=== PATIENT | female | born 1975 | race Caucasian/White ===

== ENCOUNTER 2017-11-24 02:32 | Emergency (ER) | payer MEDICAID ==
[~2017-11-24] VITALS: Ht 167.6 cm; Wt 54.0 kg
[~2017-11-24 02:32] MED LIST: CITALOPRAM; LITHIUM
[2017-11-24 02:33] VITALS: BP 160/93
== END 2017-11-24 08:04 | disposition left against medical advice (07) ==
LOC: ER 02:32
DX: R46.89 Other symptoms and signs involving appearance and behavior (principal); Z53.21 Procedure and treatment not carried out due to patient leaving prior to being seen by health care provider

== ENCOUNTER 2017-12-10 17:16 | Emergency (ER) | payer SELFPAY ==
[~2017-12-10] VITALS: Ht 172.7 cm; Wt 55.0 kg
[2017-12-10 17:19] VITALS: BP 130/64
== END 2017-12-10 21:02 | disposition left against medical advice (07) ==
LOC: ER 17:32
DX: Z00.8 Encounter for other general examination (principal); Z53.21 Procedure and treatment not carried out due to patient leaving prior to being seen by health care provider

== ENCOUNTER 2019-01-11 10:02 | Emergency (ER) | payer MEDICAID, OTHER ==
[~2019-01-11] VITALS: Ht 172.7 cm; Wt 65.0 kg
[2019-01-11 10:05] VITALS: BP 144/98
== END 2019-01-11 11:12 | disposition left against medical advice (07) ==
LOC: ER 10:02
DX: Z53.21 Procedure and treatment not carried out due to patient leaving prior to being seen by health care provider (principal)

== ENCOUNTER 2019-01-12 11:12 | Emergency (ER) | payer MEDICAID ==
[~2019-01-12] VITALS: Ht 167.6 cm; Wt 80.0 kg
[2019-01-12] MEDS ORDERED: KETOROLAC 60MG/2ML VIAL IM ONE (14:00)
[2019-01-12 14:41] VITALS: BP 115/71
== END 2019-01-12 14:44 | disposition home or self-care (01) ==
LOC: ER 11:12
DX: K04.7 Periapical abscess without sinus (principal); R68.84 Jaw pain; F31.9 Bipolar disorder, unspecified; G47.00 Insomnia, unspecified; F41.9 Anxiety disorder, unspecified; Z88.0 Allergy status to penicillin; Z88.8 Allergy status to other drugs, medicaments and biological substances
CPT/HCPCS: 81025; 96372; 99283; J1885

== ENCOUNTER 2019-02-22 18:11 | Emergency (ER) | payer MEDICAID ==
[~2019-02-22] VITALS: Ht 167.6 cm; Wt 80.0 kg
[2019-02-22] MEDS ORDERED: SODIUM CHLORIDE 0.9% 1,000 ML IV ONE (22:42)
[2019-02-22] MEDS ORDERED: LORAZEPAM 2MG/ML CPJ IV STA (22:42)
[2019-02-22 23:01] LABS: BASOPHILS % 1.5 % (0.0-2.0); HEMATOCRIT. 42.3 % (36.0-48.0); LYMPHOCYTES % 37.5 % (20.0-50.0); MEAN CORPUSCULAR HEMOGLOBIN 29.5 pg (28.0-32.0); MEAN CORPUSCULAR VOLUME 89.6 fL (81.0-99.0); MEAN PLATELET VOLUME 7.9 fl (7.4-10.4); MONOCYTES % 8.8 % (2.0-8.0); NEUTROPHILS % 51.2 % (40.0-76.0); PLATELET 323 x1000/uL (130-400); RED BLOOD CELL COUNT 4.73 mill/uL (4.2-5.4); RED CELL DISTRIBUTION WIDTH 15.5 % (11.6-14.6)
[2019-02-22 23:06] LABS: CHLORIDE 105 mEq/L (98-107)
[2019-02-22 23:07] LABS: HCG SCREEN NEGATIVE
[2019-02-22 23:10] LABS: ETHANOL BLOOD 55 mg/dL
[2019-02-22 23:50] LABS: CLARITY URINE CLEAR (CLEAR); COLOR URINE YELLOW (YELLOW); KETONES URINE TRACE (NEGATIVE); LEUKOCYTE ESTERASE URINE 1+ (NEGATIVE); NITRITE URINE NEGATIVE (NEGATIVE); OCCULT BLOOD URINE NEGATIVE (NEGATIVE); PH URINE 7.5 (4.5-8.0); PROTEIN URINE NEGATIVE (NEGATIVE); UROBILINOGEN URINE 0.2 E.U./dL (0.2-1.0)
[2019-02-23 00:13] LABS: *AMPHETAMINES SCREEN URINE NEGATIVE (NEGATIVE); *BARBITURATES SCREEN URINE NEGATIVE (NEGATIVE); *BENZODIAZEPINES SCREEN URINE NEGATIVE (NEGATIVE); *COCAINE SCREEN URINE NEGATIVE (NEGATIVE)
[2019-02-23 00:14] LABS: CANNABINOID URINE SCREEN NEGATIVE (NEGATIVE); METHADONE URINE SCREEN NEGATIVE (NEGATIVE); OPIATES URINE SCREEN NEGATIVE (NEGATIVE); PHENCYCLIDINE URINE SCREEN NEGATIVE (NEGATIVE)
[2019-02-23] MEDS ORDERED: LORAZEPAM 1MG TABLET PO ONE (05:30)
[2019-02-23] MEDS ORDERED: LORAZEPAM 0.5MG TABLET PO ONE (06:45)
[2019-02-23 11:19] VITALS: BP 126/72
== END 2019-02-23 11:33 | disposition home or self-care (01) ==
LOC: ER 18:11
DX: F32.9 Major depressive disorder, single episode, unspecified (principal); R45.851 Suicidal ideations; F41.9 Anxiety disorder, unspecified; F10.10 Alcohol abuse, uncomplicated; Z88.0 Allergy status to penicillin; Z88.5 Allergy status to narcotic agent; Y90.2 Blood alcohol level of 40-59 mg/100 ml
CPT/HCPCS: 36415; 80053; 80305; 80320; 81003; 84703; 85025; 93005; 96374; 99284; J2060; J7030; Z7610; G0480

== ENCOUNTER 2019-09-11 09:08 | Inpatient (IN) | payer MEDICAID ==
[~2019-09-11] VITALS: Ht 172.7 cm; Wt 86.2 kg
[2019-09-11] MEDS ORDERED: ACETAMINOPHEN 325MG TABLET PO ONE (09:45)
[2019-09-11] MEDS ORDERED: MECLIZINE 25MG TABLET PO ONE (11:30)
[2019-09-11] MEDS ORDERED: SODIUM CHLORIDE 0.9% 1,000 ML IV ONE (11:37)
[2019-09-11] MEDS ORDERED: ONDANSETRON HCL 4MG/2ML INJ IV STA (11:37)
[2019-09-11 11:50] LABS: BASOPHILS % 0.2 % (0.0-2.0); HEMATOCRIT. 42.6 % (36.0-48.0); HEMOGLOBIN. 14.6 g/dL (12.0-16.0); LYMPHOCYTES % 9.5 % (20.0-50.0); MEAN CORPUSCULAR HEMOGLOBIN 32.1 pg (28.0-32.0); MEAN CORPUSCULAR VOLUME 93.5 fL (81.0-99.0); MEAN PLATELET VOLUME 8.1 fl (7.4-10.4); MONOCYTES % 5.8 % (2.0-8.0); NEUTROPHILS % 84.5 % (40.0-76.0); PLATELET 365 x1000/uL (130-400); RED BLOOD CELL COUNT 4.55 mill/uL (4.2-5.4); RED CELL DISTRIBUTION WIDTH 14.7 % (11.6-14.6)
[2019-09-11 11:51] LABS: CHLORIDE 104 mEq/L (98-107)
[2019-09-11 14:30] VITALS: BP 130/85
[2019-09-11] MEDS ORDERED: PROP20TA7 PO (15:24)
[2019-09-11] MEDS ORDERED: LAMO50TA3 MT (15:24)
[2019-09-11] MEDS ORDERED: CARB300C6 MT (15:24)
[2019-09-11 15:42] VITALS: BP 130/85
[2019-09-11] MEDS: ONDANSETRON HCL 4MG/2ML INJ IV PRN ×2 (19:14→23:31)
[2019-09-11 20:00] VITALS: BP 145/94
[2019-09-11] MEDS ORDERED: SODIUM CHLORIDE 0.9% 500 ML IV SCH (21:15)
[2019-09-11] MEDS: PROPRANOLOL HCL 10MG TABLET PO SCH (21:18)
[2019-09-11] MEDS: LAMOTRIGINE 25MG TABLET PO SCH (21:19)
[2019-09-11] MEDS: CARBAMAZEPINE 100MG TABLET CHEW PO SCH (21:19)
[2019-09-11] MEDS: SODIUM CHLORIDE 0.9% 1,000 ML IV SCH (21:45)
[2019-09-11] MEDS ORDERED: METOCLOPRAMIDE HCL 10MG TABLET PO PRN (23:30)
[2019-09-12] VITALS: BP 148/94
[2019-09-12 04:00] VITALS: BP 129/84
[2019-09-12] MEDS: ONDANSETRON HCL 4MG/2ML INJ IV PRN (04:33)
[2019-09-12] MEDS: METOCLOPRAMIDE HCL 10MG/2ML VIAL IV SCH ×3 (05:02→17:46)
[2019-09-12] MEDS: PROPRANOLOL HCL 10MG TABLET PO SCH ×3 (06:55→22:45)
[2019-09-12 08:00] VITALS: BP 129/81
[2019-09-12 09:09] LABS: HEPATITIS B SURFACE ANTIGEN NEGATIVE
[2019-09-12 09:38] LABS: HEPATITIS A AB IGM NEGATIVE (NEGATIVE)
[2019-09-12] MEDS: LAMOTRIGINE 25MG TABLET PO SCH ×2 (10:22→18:29)
[2019-09-12] MEDS: HYDROCODONE/ACETAMINOPHEN 5/325MG TABLET PO PRN ×3 (10:23→20:35)
[2019-09-12] MEDS: SODIUM CHLORIDE 0.9% 1,000 ML IV SCH (10:50)
[2019-09-12 12:00] VITALS: BP 117/77
[2019-09-12 16:00] VITALS: BP 115/71
[2019-09-12] MEDS: DOCUSATE SODIUM 100MG CAPSULE PO PRN (18:28)
[2019-09-12 20:00] VITALS: BP 121/77
[2019-09-12] MEDS: CARBAMAZEPINE 100MG TABLET CHEW PO SCH (20:34)
[2019-09-13] VITALS: BP 113/70
[2019-09-13] MEDS: SODIUM CHLORIDE 0.9% 1,000 ML IV SCH (00:28)
[2019-09-13] MEDS: METOCLOPRAMIDE HCL 10MG/2ML VIAL IV SCH ×4 (00:29→12:00)
[2019-09-13] MEDS: HYDROCODONE/ACETAMINOPHEN 5/325MG TABLET PO PRN ×4 (00:45→23:27)
[2019-09-13 04:00] VITALS: BP 129/81
[2019-09-13] MEDS: PROPRANOLOL HCL 10MG TABLET PO SCH ×3 (06:50→21:44)
[2019-09-13 08:00] VITALS: BP 129/78
[2019-09-13] MEDS: LAMOTRIGINE 25MG TABLET PO SCH ×2 (09:45→17:18)
[2019-09-13] MEDS: DOCUSATE SODIUM 100MG CAPSULE PO PRN (11:59)
[2019-09-13 12:08] VITALS: BP 124/82
[2019-09-13 16:25] VITALS: BP 126/88
[2019-09-13 20:00] VITALS: BP 133/76
[2019-09-13] MEDS: CARBAMAZEPINE 100MG TABLET CHEW PO SCH (21:43)
[2019-09-14] VITALS: BP 136/89
[2019-09-14] MEDS: SODIUM CHLORIDE 0.9% 1,000 ML IV SCH ×2 (01:03→04:36)
[2019-09-14 04:00] VITALS: BP 130/75
[2019-09-14] MEDS: METOCLOPRAMIDE HCL 10MG/2ML VIAL IV SCH ×2 (05:03)
[2019-09-14] MEDS: HYDROCODONE/ACETAMINOPHEN 5/325MG TABLET PO PRN (05:04)
[2019-09-14] MEDS: PROPRANOLOL HCL 10MG TABLET PO SCH (05:07)
[2019-09-14 08:00] VITALS: BP 138/79
[2019-09-14] MEDS: LAMOTRIGINE 25MG TABLET PO SCH (09:05)
[2019-09-14 09:50] VITALS: BP 138/79
[2019-09-17 13:06] LABS: AChR BLOCKING ABS SERUM 13 % (0-25)
== END 2019-09-14 10:58 | disposition home or self-care (01) | DRG 57 ==
LOC: ER 09:08 → 6WST 11:53 → ENRESERV 13:56
PROVIDERS: ADMIT Internal Medicine; ATTEND Internal Medicine
DX: S06.0X9A Concussion with loss of consciousness of unspecified duration, initial encounter (principal); E87.1 Hypo-osmolality and hyponatremia; B18.2 Chronic viral hepatitis C; W18.2XXA Fall in (into) shower or empty bathtub, initial encounter; F41.9 Anxiety disorder, unspecified; F31.9 Bipolar disorder, unspecified; Y93.E1 Activity, personal bathing and showering; Z88.0 Allergy status to penicillin; Z88.8 Allergy status to other drugs, medicaments and biological substances; Z79.899 Other long term (current) drug therapy; Y93.89 Activity, other specified; Y92.89 Other specified places as the place of occurrence of the external cause; Y99.8 Other external cause status
CPT/HCPCS: 36415; 70544; 70553; 71045; 76700; 80076; 80320; 83519; 84484; 86705; 86709; 86803; 87340; 93005; 93880; 97162; 97165; 99285; J2405; J2765; J7030; J8597; G0480

== ENCOUNTER 2019-09-20 15:25 | Emergency (ER) | payer MEDICAID ==
[~2019-09-20] VITALS: Ht 172.7 cm; Wt 88.0 kg
[~2019-09-20 15:25] MED LIST changes: +CARB300C6 MT; -CITALOPRAM; +LAMO50TA3 MT; -LITHIUM; +PROP20TA7 PO
[2019-09-20 15:39] VITALS: BP 138/100
[2019-09-20] MEDS: NAPROXEN 375MG TABLET PO ONE (16:40)
== END 2019-09-20 16:40 | disposition home or self-care (01) ==
LOC: ER 15:25
DX: R51 Headache (principal); R03.0 Elevated blood-pressure reading, without diagnosis of hypertension
CPT/HCPCS: 99283

== ENCOUNTER 2023-08-08 11:26 | Emergency (ER) | payer MEDICAID ==
[~2023-08-08] VITALS: Ht 172.7 cm; Wt 73.0 kg
[~2023-08-08 11:26] MED LIST changes: -CARB300C6 MT; +CARB300C9 MT
[2023-08-08] MEDS ORDERED: LORAZEPAM 1MG TABLET PO ONE (11:45)
[2023-08-08] MEDS ORDERED: HALOPERIDOL LACTATE 5MG/ML VIAL IM STA (11:47)
[2023-08-08] MEDS ORDERED: DIPHENHYDRAMINE 50MG/ML VIAL IM STA (11:47)
[2023-08-08] MEDS ORDERED: LORAZEPAM 2MG/ML CPJ IM ONE (12:00)
[2023-08-08 12:14] VITALS: O2SAT 97
[2023-08-08 13:19] LABS: BASOPHILS % 2.3 % (0.0-2.0); EOSINOPHILS % 1.7 % (0.0-5.0); HEMATOCRIT. 42.7 % (36.0-48.0); HEMOGLOBIN. 14.1 g/dL (12.0-16.0); LYMPHOCYTES % 42.4 % (20.0-50.0); MEAN CORPUSCULAR HEMOGLOBIN 31.6 pg (28.0-32.0); MEAN CORPUSCULAR HGB CONC 33.1 g/dL (31.0-37.0); MEAN CORPUSCULAR VOLUME 95.6 fL (81.0-99.0); MEAN PLATELET VOLUME 7.9 fl (7.4-10.4); MONOCYTES % 6.2 % (2.0-8.0); NEUTROPHILS % 47.4 % (40.0-76.0); PLATELET 240 x1000/uL (130-400); RED BLOOD CELL COUNT 4.46 mill/uL (4.2-5.4); RED CELL DISTRIBUTION WIDTH 13.1 % (11.6-14.6); WHITE BLOOD COUNT 3.6 x1000/uL (4.5-11.0)
[2023-08-08 13:40] LABS: HCG SCREEN NEGATIVE
[2023-08-08 13:53] LABS: CHLORIDE 113 mEq/L (98-107); INDEX HEMOLYSI 2 (1-3); INDEX ICTERIC 1 (1-4); INDEX LIPEMIC 1 (1-3); POTASSIUM 3.5 mEq/L (3.5-5.1); SODIUM 145 mEq/L (136-145)
[2023-08-08 14:09] LABS: ACETAMINOPHEN < 2 ug/mL (10-30); ALANINE AMINOTRANSFERASE 344 IU/L (13-61); ALBUMIN 3.7 g/dL (3.4-5.0); ASPARTATE AMINOTRANSFERASE 279 IU/L (15-37); BILIRUBIN TOTAL 0.4 mg/dL (0.1-1.0); CALCIUM 8.1 mg/dL (8.5-10.1); CARBON DIOXIDE 23 mEq/L (21-32); CREATININE 0.9 mg/dL (0.6-1.3); ETHANOL BLOOD 292 mg/dL (<10); GLUCOSE 92 mg/dL (70-105); PROTEIN TOTAL 7.4 g/dL (6.0-8.3); THYROID STIMULATING HORMONE 0.64 uIU/mL (0.36-3.74); UREA NITROGEN BLOOD 13 mg/dL (7-21)
[2023-08-09 10:18] LABS: *AMPHETAMINES SCREEN URINE NEGATIVE (NEGATIVE); *BARBITURATES SCREEN URINE NEGATIVE (NEGATIVE); *BENZODIAZEPINES SCREEN URINE NEGATIVE (NEGATIVE); *COCAINE SCREEN URINE NEGATIVE (NEGATIVE); CANNABINOID URINE SCREEN NEGATIVE (NEGATIVE); ECSTASY MDMA SCREEN URINE NEGATIVE (NEGATIVE); OPIATES URINE SCREEN NEGATIVE (NEGATIVE); PHENCYCLIDINE URINE SCREEN NEGATIVE (NEGATIVE)
[2023-08-09 13:02] VITALS: BP 154/96; PULSE 62; RESP 16; TEMP 98.9
== END 2023-08-09 15:00 | disposition home or self-care (01) ==
LOC: ER 11:26
DX: F41.9 Anxiety disorder, unspecified (principal); I10 Essential (primary) hypertension; Z88.0 Allergy status to penicillin; Z20.822 Contact with and (suspected) exposure to COVID-19
CPT/HCPCS: 80053; 80307; 80329; 80320; 84703; 84443; 85025; 36415; 96372; 99291; 80305; 87426; J1200; J1630; J2060; Z7610 ×4; C9803; G0480

== ENCOUNTER 2024-02-29 20:30 | Emergency (ER) | payer MEDICAID ==
[~2024-02-29] VITALS: Ht 175.3 cm; Wt 82.0 kg
[2024-02-29 20:55] VITALS: O2SAT 95
[2024-02-29 22:28] LABS: CLARITY URINE CLEAR (CLEAR); COLOR URINE YELLOW (YELLOW); GLUCOSE URINE NEGATIVE (NEGATIVE); KETONES URINE NEGATIVE (NEGATIVE); LEUKOCYTE ESTERASE URINE TRACE (NEGATIVE); NITRITE URINE NEGATIVE (NEGATIVE); OCCULT BLOOD URINE NEGATIVE (NEGATIVE); PROTEIN URINE NEGATIVE (NEGATIVE); SPECIFIC GRAVITY URINE 1.004 (1.005-1.030); UROBILINOGEN URINE 0.2 E.U./dL (0.2-1.0)
[2024-02-29 22:36] LABS: *AMPHETAMINES SCREEN URINE NEGATIVE (NEGATIVE); *BARBITURATES SCREEN URINE NEGATIVE (NEGATIVE); *BENZODIAZEPINES SCREEN URINE NEGATIVE (NEGATIVE); *COCAINE SCREEN URINE NEGATIVE (NEGATIVE); CANNABINOID URINE SCREEN NEGATIVE (NEGATIVE); ECSTASY MDMA SCREEN URINE NEGATIVE (NEGATIVE); METHADONE URINE SCREEN NEGATIVE (NEGATIVE); OPIATES URINE SCREEN NEGATIVE (NEGATIVE); PHENCYCLIDINE URINE SCREEN NEGATIVE (NEGATIVE)
[2024-02-29 22:42] LABS: BACTERIA URINE NONE SEEN; RBC URINE NONE SEEN /hpf (0-2); SQUAMOUS EPITHELIAL CELL URINE RARE /lpf (RARE/1+); WBC URINE 0-2 /hpf (0-2)
[2024-02-29 23:51] LABS: EOSINOPHILS % 2.8 % (0.0-5.0); HEMATOCRIT. 48.5 % (36.0-48.0); HEMOGLOBIN. 16.8 g/dL (12.0-16.0); LYMPHOCYTES % 38.8 % (20.0-50.0); MEAN CORPUSCULAR HEMOGLOBIN 34.4 pg (28.0-32.0); MEAN CORPUSCULAR HGB CONC 34.6 g/dL (31.0-37.0); MEAN CORPUSCULAR VOLUME 99.4 fL (81.0-99.0); MEAN PLATELET VOLUME 8.1 fl (7.4-10.4); MONOCYTES % 7.4 % (2.0-8.0); PLATELET 314 x1000/uL (130-400); RED BLOOD CELL COUNT 4.88 mill/uL (4.2-5.4); WHITE BLOOD COUNT 5.6 x1000/uL (4.5-11.0)
[2024-03-01 00:01] LABS: CHLORIDE 109 mEq/L (98-107); POTASSIUM 3.9 mEq/L (3.5-5.1); SODIUM 144 mEq/L (136-145)
[2024-03-01 00:02] LABS: CALCIUM 10.5 mg/dL (8.7-10.4); CARBON DIOXIDE 27 mEq/L (21-32)
[2024-03-01 00:07] LABS: CREATININE 0.9 mg/dL (0.6-1.0); GLUCOSE 80 mg/dL (70-105); UREA NITROGEN BLOOD 8 mg/dL (9-23)
[2024-03-01 00:08] LABS: ETHANOL BLOOD 148 mg/dL (<10)
[2024-03-01 00:09] LABS: ACETAMINOPHEN < 2 ug/mL (10-30); ALANINE AMINOTRANSFERASE 252 IU/L (10-49); ALBUMIN 5.2 g/dL (3.2-4.8); ASPARTATE AMINOTRANSFERASE 225 IU/L (<34); BILIRUBIN TOTAL 0.4 mg/dL (0.1-1.0)
[2024-03-01 00:10] LABS: PROTEIN TOTAL 8.8 g/dL (6.0-8.3)
[2024-03-01] MEDS: MIDAZOLAM HCL 2 MG/2 ML VIAL IM ONE (00:30)
[2024-03-01] MEDS: HALOPERIDOL LACTATE 5MG/ML VIAL IM ONE (00:30)
[2024-03-01 00:46] LABS: HCG SCREEN NEGATIVE
[2024-03-01 06:12] VITALS: BP 136/54; PULSE 67; RESP 14; TEMP 98.1
== END 2024-03-01 08:28 | disposition home or self-care (01) ==
LOC: ER 20:30
DX: R45.851 Suicidal ideations (principal); I10 Essential (primary) hypertension; Z20.822 Contact with and (suspected) exposure to COVID-19
CPT/HCPCS: 36415; 80053; 80305; 80307; 80320; 80329; 81003; 84703; 85025; 87426; 99285; G0480

== ENCOUNTER 2024-05-17 21:30 | Emergency (ER) | payer MEDICAID ==
[~2024-05-17] VITALS: Ht 172.7 cm; Wt 82.0 kg
[2024-05-17 21:39] VITALS: BP 118/78; PULSE 92; RESP 14; TEMP 98.6; O2SAT 97
[2024-05-17] MEDS ORDERED: SODIUM CHLORIDE 0.9% 1,000 ML IV ONE (22:30)
[2024-05-17] MEDS: LORAZEPAM 1MG TABLET PO ONE (22:52)
[2024-05-17] MEDS: ONDANSETRON HCL 4MG/2ML INJ IV ONE (22:53)
[2024-05-17 22:54] LABS: BASOPHILS % 1.3 % (0.0-2.0); EOSINOPHILS % 4.2 % (0.0-5.0); HEMATOCRIT. 46.9 % (36.0-48.0); HEMOGLOBIN. 15.8 g/dL (12.0-16.0); LYMPHOCYTES % 33.6 % (20.0-50.0); MEAN CORPUSCULAR HEMOGLOBIN 33.5 pg (28.0-32.0); MEAN CORPUSCULAR HGB CONC 33.7 g/dL (31.0-37.0); MEAN CORPUSCULAR VOLUME 99.4 fL (81.0-99.0); MEAN PLATELET VOLUME 7.9 fl (7.4-10.4); MONOCYTES % 7.3 % (2.0-8.0); NEUTROPHILS % 53.6 % (40.0-76.0); PLATELET 338 x1000/uL (130-400); RED BLOOD CELL COUNT 4.72 mill/uL (4.2-5.4); WHITE BLOOD COUNT 6.3 x1000/uL (4.5-11.0)
[2024-05-17 22:56] LABS: CLARITY URINE CLEAR (CLEAR); COLOR URINE YELLOW (YELLOW); GLUCOSE URINE NEGATIVE (NEGATIVE); KETONES URINE NEGATIVE (NEGATIVE); LEUKOCYTE ESTERASE URINE NEGATIVE (NEGATIVE); NITRITE URINE NEGATIVE (NEGATIVE); OCCULT BLOOD URINE NEGATIVE (NEGATIVE); PROTEIN URINE NEGATIVE (NEGATIVE); SPECIFIC GRAVITY URINE 1.003 (1.005-1.030); UROBILINOGEN URINE 0.2 E.U./dL (0.2-1.0)
[2024-05-17 23:03] LABS: PROTHROMBIN TIME 10.8 sec (9.6-11.0)
[2024-05-17 23:05] LABS: HCG SCREEN NEGATIVE
[2024-05-17 23:06] LABS: CARBON DIOXIDE 22 mEq/L (21-32); CHLORIDE 111 mEq/L (98-107); POTASSIUM 3.9 mEq/L (3.5-5.1); SODIUM 143 mEq/L (136-145)
[2024-05-17 23:06] LABS: *AMPHETAMINES SCREEN URINE NEGATIVE (NEGATIVE); *BARBITURATES SCREEN URINE NEGATIVE (NEGATIVE); *BENZODIAZEPINES SCREEN URINE NEGATIVE (NEGATIVE); *COCAINE SCREEN URINE NEGATIVE (NEGATIVE); METHADONE URINE SCREEN NEGATIVE (NEGATIVE); OPIATES URINE SCREEN NEGATIVE (NEGATIVE)
[2024-05-17 23:07] LABS: CANNABINOID URINE SCREEN NEGATIVE (NEGATIVE); ECSTASY MDMA SCREEN URINE NEGATIVE (NEGATIVE); PHENCYCLIDINE URINE SCREEN NEGATIVE (NEGATIVE)
[2024-05-17 23:07] LABS: CALCIUM 9.5 mg/dL (8.7-10.4)
[2024-05-17] MEDS: ACETAMINOPHEN 1000MG/100ML 100 ML IV ONE (23:10)
[2024-05-17 23:11] LABS: CREATININE 0.8 mg/dL (0.6-1.0)
[2024-05-17 23:12] LABS: ETHANOL BLOOD 269 mg/dL (<10); GLUCOSE 108 mg/dL (70-105); UREA NITROGEN BLOOD 7 mg/dL (9-23)
[2024-05-17 23:13] LABS: ALANINE AMINOTRANSFERASE 261 IU/L (10-49); ALBUMIN 4.9 g/dL (3.2-4.8); ASPARTATE AMINOTRANSFERASE 181 IU/L (<34)
[2024-05-17 23:14] LABS: BILIRUBIN TOTAL 0.3 mg/dL (0.1-1.0); PROTEIN TOTAL 7.9 g/dL (6.0-8.3)
[2024-05-17 23:18] LABS: BILIRUBIN DIRECT < 0.1 mg/dL (<=3.0)
== END 2024-05-17 23:30 | disposition left against medical advice (07) ==
LOC: ER 21:30
DX: R10.9 Unspecified abdominal pain (principal); F41.9 Anxiety disorder, unspecified; I10 Essential (primary) hypertension; Z88.0 Allergy status to penicillin
CPT/HCPCS: 80076; 80305; 80048; 81003; 80320; 84703; 83690; 85025; 85610; 36415; 96365; 96375; 99284; J2405; J7030; Z7610; G0480; J0131

== ENCOUNTER 2025-03-23 11:56 | Emergency (ER) | payer MEDICAID ==
[~2025-03-23] VITALS: Ht 172.7 cm; Wt 79.0 kg
[2025-03-23 12:02] VITALS: O2SAT 99
[2025-03-23] MEDS: TRAMADOL 50MG TABLET PO ONE (12:52)
[2025-03-23] MEDS: LORAZEPAM 1MG TABLET PO ONE (12:52)
[2025-03-23 13:35] VITALS: BP 118/85; PULSE 94; RESP 16; TEMP 36.9; O2SAT 100
== END 2025-03-23 13:36 | disposition home or self-care (01) ==
LOC: ER 11:56
DX: F41.9 Anxiety disorder, unspecified (principal); I10 Essential (primary) hypertension; Z79.899 Other long term (current) drug therapy; Z76.0 Encounter for issue of repeat prescription; Z88.0 Allergy status to penicillin
CPT/HCPCS: 99283